=== PATIENT | female | born 1975 | race Two or more races ===

== ENCOUNTER 2024-02-03 03:02 | Emergency (ER) | payer BC, MEDICAID ==
[~2024-02-03] VITALS: Ht 175.3 cm; Wt 69.3 kg
[2024-02-03] MEDS: ibuprofen tablet 400 MG TABLET PO ONE (03:56)
[2024-02-03] MEDS: acetaminophen 325mg tablet PO ONE (03:56)
[2024-02-03] MEDS: LIDOcaine 1% W/epiNEPHrine 1:100,000 20ml vial IJ ONE (03:56)
[2024-02-03] MEDS: TETanus/Pertussis (Acell)/Diphther VAC/PF (Tdap-Adult) 0.5ml syringe IMVAC ONE (03:57)
[2024-02-03] MEDS: bacitracin 15gm ointment TP ONE (03:58)
[2024-02-03] MEDS ORDERED: AMOX-115 PO (04:58)
[2024-02-03] MEDS: ondansetron 4mg rapidly disintigrating tab PO ONE (05:15)
[2024-02-03] MEDS: amox tr/potassium clavulanate 875/125mg TAB PO ONE (05:16)
[2024-02-03 05:24] VITALS: BP 112/62; PULSE 80; RESP 16; TEMP 98.7; O2SAT 98
== END 2024-02-03 05:26 ==
LOC: ER 03:03
DX: S91.012A Laceration without foreign body, left ankle, initial encounter (principal); Z88.8 Allergy status to other drugs, medicaments and biological substances; W54.0XXA Bitten by dog, initial encounter; Y93.89 Activity, other specified; Y92.89 Other specified places as the place of occurrence of the external cause; Y99.8 Other external cause status
CPT/HCPCS: 12002; 73610; 73630; 90471; 90715; 99284; A6223; J3490; 29515; A6449

== ENCOUNTER 2024-11-18 15:25 | Emergency (ER) | payer BC, MEDICAID ==
[~2024-11-18] VITALS: Ht 175.3 cm; Wt 78.2 kg
[2024-11-18] MEDS: LIDOcaine 1% W/epiNEPHrine 1:100,000 20ml vial SQ STA (16:54)
--- NOTE | 2024-11-18 17:05 | Physician Documentation ---
History of Present Illness ~ Chief Complaint: Abscess Stated Complaint: ABSCESS Time Seen by MD: 15:52 HPI Patient is seen today with complaints of an abscess on her right wrist in the dorsum radial aspect. Patient denies any fevers or chills. She admits to multiple previous episodes of multiple previous abscesses. Patient denies any fevers or chills. She has no other concern or complaint at this time. Tetanus Within 5 Years: No Medication Reconciliation Allergies: Coded Allergies: morphine (Verified Allergy, Unknown, 02/03/24) Review of Systems Constitutional: Denies: chills, fever, weakness Eyes: Denies: pain, blurred vision ENT: Denies: ear pain, nose pain, throat pain, mouth pain Respiratory: Denies: cough, shortness of breath Cardiovascular: Denies: chest pain, palpitations Gastrointestinal: Denies: abdominal pain, nausea, vomiting Genitourinary: Denies: burning, dysuria Female Genitalia: Denies: vaginal discharge, pelvic pain Neurological: Denies: headache, dizziness Musculoskeletal: Denies: pain, swelling Integumentary: Denies: rash, lesions Allergic/Immunologic: Denies: hives, itching Hematologic/Lymphatic: Denies: no symptoms reported Psychiatric: Denies: depression, anxiety Physical Exam Vital Signs: Temperature: 98.2, Source: Oral, Heart Rate: 90, Respiratory Rate: 16, BP: 110/73, Pulse Oximetry: 98, Weight: 78.200 Oxygen Flow Rate: 0 Physical Exam General: Awake and Alert, no acute distress. HEENT: Conjunctiva pink, Sclera clear, Mucus Membranes moist. Neck: Supple without masses and tenderness. Resp: Unlabored. Lungs clear to auscultation bilaterally. Heart: Regular Rate and rhythm, normal S1 and S2 without murmur, rub or gallop. Extremities: No cyanosis,clubbing or edema. Skin: Patient on exam has 4 cm diameter area of induration and erythema consistent with abscess with central open sore on her right wrist dorsum of the radial aspect. Patient has no sign of red streaking or tracking up her right arm. Procedures I & D Procedure : Procedure Note Procedure note: 3 cc of 1% lidocaine with epinephrine was used to achieve local anesthesia of the abscess of right wrist. Patient tolerated well. There was a central hole or area of drainage that was further undermined and multiple loculations broken up. A centralized plug was then also removed and 2 cc of purulent drainage was expressed. Abscess was then packed with quarter-inch iodoform packing was about 3 in of packing. Bulky bandage then placed over ab scess. With [employer] Progress Results/Orders Results/Orders Vital Signs 11/18/24 15:41 Temp 98.2 Pulse 90 Resp 16 B/P (MAP) 110/73 Pulse Ox 98 O2 Flow Rate 0 Medical Decision Making Findings Patient is seen today with complaints of an abscess on her right wrist in the dorsum radial aspect. Patient denies any fevers or chills. She admits to multiple previous episodes of multiple previous abscesses. Patient denies any fevers or chills. She has no other concern or complaint at this time. Abscess was incised and drained today by myself. Patient tolerated well. Patient started on Bactrim DS in the ED today and a prescription of the same was sent to patient's pharmacy to be taken as prescribed. Patient will follow up with primary care in 2-5 days if no better as needed sooner. Return to ED with any worsening, concerning or changing symptoms. Departure Disposition: HOME / SELF CARE / HOMELESS Impression: Primary Impression: Abscess Condition: Improved Discharge Instructions: Incision and Drainage Additional Instructions: Abscess was incised and drained today by myself. Patient tolerated well. Patient started on Bactrim DS in the ED today and a prescription of the same was sent to patient's pharmacy to be taken as prescribed. Patient will follow up with primary care in 2-5 days if no better as needed sooner. Return to ED with any worsening, concerning or changing symptoms. Referrals: NO PRIMARY CARE PROVIDER (PCP) Prescriptions Sulfamethoxazole/Trimethoprim (Bactrim Ds Tablet) 800 Mg-160 Mg Tablet 1 TAB PO Q12H for 10 Days, #20 TAB Prov: COY ROSA 11/18/24 Signature Scribe Signature: No scribe Attestation: No scribe COY ROSA Nov 18, 2024 17:05
[2024-11-18] MEDS ORDERED: SULF1TAB49 PO (17:17)
[2024-11-18] MEDS: sulfamethoxazole/trimethoprim DS (800/160mg) tablet PO STA (17:24)
[2024-11-18] MEDS: ibuprofen 200mg tablet PO ONE (17:24)
[2024-11-18 17:31] VITALS: BP 112/67; PULSE 64; RESP 16; TEMP 98.2; O2SAT 99
== END 2024-11-18 17:32 | disposition home or self-care (01) ==
LOC: ER 15:25
DX: L02.413 Cutaneous abscess of right upper limb (principal); Z88.5 Allergy status to narcotic agent
CPT/HCPCS: 10060; 99283; A6258; A6449